=== PATIENT | male | born 1955 | race African-American/Black ===

== ENCOUNTER → 2016-09-09 | Outpatient (CLI) | payer BC ==
[~2016-09-09] MED LIST: AMLODIPINE BESY10 MG PO; ASPIRIN EC81 M1 PO; ATENOLOL PO; ATORVASTATIN CA20 MG PO; BAYER ASPIRIN325 M1 PO; FISH OIL 1,0001 EAC4 PO; HYDRALAZINE HC100 MG PO; HYDROCHLOROTHIA25 MG PO; HYDROCODON-ACE1 EAC5 PO; K-DUR20 ME1 PO; MULTI VITAMIN1 EACH PO; VITAMIN B PO; VITAMIN D PO; ZESTRIL40 MG PO
--- NOTE | ~2016-09-09 | CO ---
Unit #: [id number] #: [id number] Patient: REGGIE HICKEY [id number] [address] [place], [place] [address] [id number] O MR#: [id number] NAME: REGGIE HICKEY ROOM: Age: 61 Sex: M Admission Date: 09/09/2016 : 1955 Attending Physician: Dorian Hensley M.D. Primary Care Physician: No Primary Care Physician CONSULTATION REPORT REASON FOR CONSULTATION Preoperative medical evaluation prior to right total knee arthroplasty scheduled by Dr. Hensley for 09/21/2016. HISTORY OF PRESENT ILLNESS The patient is a 61-year-old -Swazi male who presents for pre-procedural screening for reasons indicated above. He reports pain in the right knee at the time of this interview. He denies chest, arm, neck, jaw, back pain or pressure. Denies lightheadedness, dizziness, presyncope, syncope, palpitations. He denies dyspnea on exertion, PND, orthopnea. He has a history of sleep apnea but is unable to tolerate the CPAP mask. He denies history of myocardial infarction, congestive heart failure, CVA, TIA, diabetes mellitus or renal disease. He states he was seen by a dentist within the past three months. He has been evaluated by Dr. Hensley and scheduled for the above referenced procedure. PAST MEDICAL HISTORY 1. Osteoarthritis. 2. Hypertension. 3. Hyperlipidemia. 4. History of rheumatic fever with history of cardiac workup at some point with Dr. Matthias Turner, Dr. Muhammad and also questionable workup at the [facility]. The patient is unclear regarding time frames for this workup. 5. Obesity, BMI 34. 6. Obstructive sleep apnea, inability to tolerate CPAP mask. 7. Nonsmoker. 8. Health maintenance dental exam approximately three months ago. PAST SURGICAL HISTORY 1. Hernia. 2. Left shoulder surgery. 3. Left foot fracture repair. Patient denies a personal or family history of complications to anesthesia. ALLERGIES No known medication allergies. No latex allergy. CURRENT MEDICATIONS 1. K-Dur 20 mEq p.o. daily. 2. Hydralazine ACL 100 mg p.o. daily. 3. Hydrochlorothiazide 25 mg p.o. daily. Unit #: [id number] #: [id number] Patient: REGGIE HICKEY 4. Tenormin 100 mg p.o. daily. 5. Zestril 40 mg p.o. daily. 6. Atorvastatin calcium 20 mg p.o. daily. 7. Amlodipine besylate 10 mg p.o. daily. 8. Aspirin EC 81 mg p.o. daily. 9. Multivitamin, one tab p.o. daily. 10. Fish oil 1000 mg capsule p.o. daily. 11. Vitamin D, unknown dose p.o. daily. 12. Vitamin B, unknown dose p.o. daily. SOCIAL HISTORY Denies tobacco use and illicit drug use. Occasionally consumes beer. FAMILY HISTORY Per review of Dr. Hensley's office note and confirmation with the patient - stroke, hypertension and diabetes. Denies family history of myocardial infarction or congestive heart failure. REVIEW OF SYSTEMS A ten point review of systems is conducted and negative except as indicated under history of present illness above. PHYSICAL EXAMINATION GENERAL: 61-year-old -Swazi male awake, alert, in no acute distress. Flat affect. Somewhat irritable, ready to go home. VITAL SIGNS: Temperature 97.6, heart rate 61, respiratory rate 16, blood pressure 122/69. Oxygen saturation 97% on room air. HEENT: Atraumatic, normocephalic. Sclerae anicteric, without discharge from eyes, ears or nares. LYMPHS: No preauricular, postauricular, tonsillar, submental, anterior, posterior, cervical, supra or infraclavicular adenopathy. ENDOCRINE: No thyromegaly, thyroid nodules or tenderness. RESPIRATORY: Clear to auscultation in all conklin bilaterally without wheezes, rhonchi or rales. CARDIOVASCULAR: S1, S2. Regular rate and rhythm without murmur or rub. No carotid bruits. GI: Bowel sounds positive x4. Soft, nontender, nondistended. EXTREMITIES: No edema, cyanosis or clubbing. MUSCULOSKELETAL: Strength 5/5 in all extremities bilaterally with flexion/extension. NEURO: Alert and oriented x3. Speech clear. Cranial nerves II-XII grossly intact. DIAGNOSTIC STUDIES LABORATORY: WBC 4.4, hemoglobin 14.7, hematocrit 45.3, platelet count 145,000. Sodium 136, potassium 4.0, chloride 106, CO2 24, glucose 107, BUN 22, creatinine 1.4, calcium 9.1, AST 31, ALT 35, alkaline phos. 78, bili total 0.3, total protein 6.6, albumin 3.9. PT 10.7, INR 1.0. Urinalysis negative with neither microscopic nor culture indicated. Blood type 0 positive. Antibody screen pending at this time. MRSA nasal swab report pending at this time. DIAGNOSTIC STUDIES Unit #: [id number] #: [id number] Patient: REGGIE HICKEY IMAGIN-view chest x-ray report pending at this time. CARDIOVASCULAR: 12-lead EKG - sinus rhythm with premature supraventricular complexes, otherwise normal ECG. Tracing reviewed. Confirmed report pending at this time. IMPRESSION The patient is a 61-year-old -Swazi male who presents to pre-procedural screening for: 1. Preoperative medical evaluation prior to right total knee arthroplasty: The patient's Hagan Revised Cardiac Risk Index is equal to 0.4%. However, I have requested preoperative cardiac clearance given the patient's history of rheumatic fever as well as multiple risk factors for atherosclerotic cardiovascular disease. This has been discussed in detail with the patient. He is agreeable with the plan. The patient's EKG will be faxed to the [facility] today. The patient tells me he has an appointment with his primary care physician there tomorrow. I have given him a note stating that he needs to obtain preoperative cardiac clearance prior to his elective right total knee arthroplasty on 09/21/16. The patient verbalized understanding of this plan. 2. Osteoarthritis. 3. Hypertension: Blood pressure is stable at this time. Will plan on continuation of current medications pending recommendations from prior care physician. 4. Hyperlipidemia. 5. History of rheumatic fever. 6. Obesity: Body mass index of 34. 7. Obstructive sleep apnea: Unable to tolerate CPAP mask. Will place patient on RENETTA protocol postoperatively. 8. Nonsmoker. 9. Health maintenance dental exam three months ago: The patient's dentist is to provide a letter of preop dental clearance for Dr. Hensley. Thank you for allowing us to participate in the care of this patient. Will gladly follow for postop medical management pending preoperative cardiac clearance in order of Dr. Hensley. Dictated by... Silverio WaltersR.N. for Pauly Omer/jose TD: 09/10/2016 09:26 JOB #: [id number] Unit #: [id number] #: [id number] Patient: REGGIE HICKEY CONSULTATION REPORT Page 1 of 1 X Ileana White APRN X CONSULTATION REPORT
--- NOTE | ~2016-09-09 | EKG ---
PATIENT: REGGIE HICKEY UNIT #: [id number] Ventricular Rate: 62 BPM Atrial Rate: 62 BPM P-R Interval: 150 ms QRS Duration: 104 ms Q-T Interval: 416 ms QTC Calculation(Bezet): 422 ms P Jackson: 33 degrees Calculated R Jackson: 14 degrees Calculated T Jackson: 22 degrees Diagnosis Line: Sinus rhythm with Premature supraventricular Diagnosis Line: complexes Diagnosis Line: Otherwise normal ECG Diagnosis Line: No previous ECGs available Diagnosis Line: Confirmed by LOLA DARDEN MD ([id number]) on 09/10/2016 Diagnosis Line: 7:55:08 PM INTERPRETING MD: KATALINA BLACKBURN
--- NOTE | ~2016-09-09 | CR63 ---
[facility] A Service of [facility] & [facility] RADIOLOGY TEXT RESULTS PATIENT: REGGIE HICKEY LOCATION: [facility] : 51 UNIT #: [id number] AGE: [address]: Dorian Hensley MD SEX: M ORDER DR: [id number] [facility] [address] [place], [place] [address] [id number] O MR#: [id number] Acc #: [id number] NAME: REGGIE HICKEY : 1955 SEX: M STUDY DATE/TIME: 09/09/2016 11:31 UNIT: [facility] ROOM: STUDY DESCRIPTION: CR Chest 2 View Attending Physician: Dorian Hensley M.D. Referring Physician: Dorian Hensley M.D. Ordering Physician: Dorian Hensley M.D. Primary Care Physician: No Primary Care Physician MEDICAL IMAGING REPORT This report is preliminary unless electronic signature is present EXAM 2 views of the chest. COMPARISON None INDICATION 61-year-old male. Preop respiratory exam prior to right total knee arthroplasty. FINDINGS Cardiomediastinal silhouette is within normal limits for low lung volumes. There is no evidence of a pneumothorax, pleural effusion, or acute airspace disease. IMPRESSION Normal exam. Dictated by... Rashel Ryan M.D. THIS IS AN ELECTRONICALLY VERIFIED REPORT Rashel Ryan M.D. at 09/14/2016 4:18 PM DANNI/eliana TD: 09/09/2016 17:01 JOB #: [id number] MEDICAL IMAGING REPORT Page 1 of 1 COPY
[2016-09-09 10:54] LABS: HEMATOCRIT 45.3 % (38.0-50.0); HEMOGLOBIN 14.7 gm/dL (13.0-16.0); MEAN CELL VOLUME 87.2 FL (83-96); MEAN CORPUSCULAR HEMOGLOBIN 28.2 PG (28-34); MEAN CORPUSCULAR HGB CONC 32.4 g/dL (30-36); RED BLOOD COUNT 5.19 X10e (3.90-5.60); RED CELL DISTRIBUTION WIDTH 15.1 % (11.0-15.5); WHITE BLOOD COUNT 4.4 X10e3 (4.0-10.5)
[2016-09-09 10:57] LABS: URINE APPEARANCE CLEAR; URINE BILIRUBIN NEG (NEG); URINE BLOOD NEG (NEG); URINE COLOR YELLOW; URINE GLUCOSE NEG (NEG); URINE KETONE NEG (NEG); URINE LEUKOCYTE ESTERASE NEG (NEG); URINE NITRATE NEG (NEG); URINE PROTEIN NEG (NEG); URINE SPECIFIC GRAVITY 1.021 (1.003-1.035); URINE UROBILINOGEN 0.2 MG/DL (NEG)
[2016-09-09 11:00] LABS: CULTURE INDICATED? NO
[2016-09-09 11:02] LABS: PROTHROMBIN TIME (PATIENT) 10.7 SECONDS (9.6-11.5)
[2016-09-09 11:46] LABS: ALBUMIN SERUM 3.9 g/dL (3.5-5.0); BILIRUBIN,TOTAL 0.3 mg/dL (0.2-2.0); BUN/CREATININE RATIO 15.71; CALCIUM SERUM 9.1 mg/dL (8.4-10.2); CREATININE SERUM 1.4 mg/dL (0.6-1.4); GLOM FILT RATE Estimated 61.6 mL/min (>60); PROTEIN TOTAL SERUM 6.6 g/dL (6.0-8.3)
== END | disposition home or self-care (01) ==
LOC: CAMB 10:11
PROVIDERS: Orthopaedic Surgery
DX: Z01.818 Encounter for other preprocedural examination (principal); M17.11 Unilateral primary osteoarthritis, right knee; I10 Essential (primary) hypertension; E78.5 Hyperlipidemia, unspecified; E66.9 Obesity, unspecified; Z68.34 Body mass index [BMI] 34.0-34.9, adult; Z87.898 Personal history of other specified conditions; Z98.890 Other specified postprocedural states
CPT/HCPCS: 36415; 71020; 80053; 81003; 85027; 85610; 86850; 86900; 86901; 87070; 93005

== ENCOUNTER 2016-09-21 07:12 | Inpatient (IN) | payer BC ==
--- NOTE | ~2016-09-21 | OR ---
Unit #: [id number] #: [id number] Patient: REGGIE HICKEY [id number] [place], [place] [address] [id number] I MR#: [id number] NAME: REGGIE HICKEY ROOM: [facility] Date of Procedure: 09/21/2016 Admission Date: 09/21/2016 Surgeon: Dorian Hensley M.D. : 1955 Attending Physician: Dorian Hensley M.D. OPERATIVE REPORT PREOPERATIVE DIAGNOSIS Primary localized osteoarthritis of the right knee. POSTOPERATIVE DIAGNOSIS Primary localized osteoarthritis of the right knee. PROCEDURE PERFORMED Right total knee. ASSISTANTS Naz Ball and Jaydon Deleon. ANESTHESIA Adductor canal block plus general. ESTIMATED BLOOD LOSS 100 mL. INDICATIONS FOR PROCEDURE This is a 61-year-old with severe pain in his right knee. He has had pain for months. It has gotten progressively worse. X-rays show he has [id number] with subchondral sclerosis and periarticular osteophytes. He has tried injections and anti-inflammatories with no relief of the discomfort. DESCRIPTION OF PROCEDURE The patient was brought to the holding room, given 3 g of Ancef. This will be continued postop, but discontinued within 23 hours the start time of surgery. He was then given an adductor canal block, brought back to the operating room, given a general anesthetic. Tourniquet was placed around the right thigh. The right leg was prepped and draped in a sterile fashion. Tourniquet was inflated to 300. A straight anterior skin incision was made. The subcutaneous dissected away and a medial arthrotomy was performed. Patella was slid to the side. Osteophytes were removed from the femur. The intramedullary guide was used and a 6-degree valgus cut was made on the distal femur. The femur was sized using the ATTUNE sizing guide and it was found to be a size 7. The anterior-posterior cutting block was applied. Rotation checked in the knee. Anterior and posterior cuts were made along with the chamfer cuts. We then made a cut for the trochlear groove. Proximal tibial cut was made using an external 0 degree block and it was found to be a size 7 as well. Any remaining meniscal fragments were debrided and any posterior condylar Unit #: [id number] #: [id number] Patient: REGGIE HICKEY osteophytes were removed. We then injected the posterior capsule and the periosteum with ropivacaine. Trial femur was applied and the drill holes were made for lugs on the femoral component. Trial tibia was applied with first a 5 and then a 6 mm insert. The 6 came to full extension, had good stability in extension and flexion. The patella was grasped with 2 towel clips, measured 26 mm thick, cut smooth at 15 and a 41 patella was the appropriate size. The 3 drill holes were made. Trial patella applied and it tracked properly. We then removed all the trials, used the drill and punch for the tibial tray. The posterior condylar osteophytes were removed. The posterior capsule and the periosteum were injected with a ropivacaine mixture. We then irrigated the knee and dried while the cement was mixed. Then, all 3 components were cemented simultaneously. Once again, it was a size 7 femur, size 7 tibia, and a 41 patella from the Bizzby Knee system. After the cement was hardened, it was judged that the 6 mm insert was the appropriate thickness, so this was opened and applied to the tray. The tourniquet was released. Hemostasis was obtained. The rest of the ropivacaine mixture was injected. The knee was washed with Betadine and bacitracin and then closed using 0 Ethibond in the arthrotomy, 0 and 2-0 Vicryl in the subcutaneous, and ingrid in the skin. podiatry assistant, Naz Ball was present throughout the entire case. Dictated by... Pauly Yates/bushra TD: 09/21/2016 22:52 JOB #: [id number] OPERATIVE REPORT Page 1 of 1 X Dorian Hensley MD PROCEDURE OPERATIVE NOTE
--- NOTE | ~2016-09-21 | DS ---
Unit #: [id number] #: [id number] Patient: REGGIE BERTRAND [id number] [address] [address] [id number] I MR#: [id number] NAME: REGGIE BERTRAND ROOM: 451 Age: 61 Sex: M Admission Date: 09/21/2016 : 1955 Discharge Date: Attending Physician: Dorian Hensley M.D. DISCHARGE SUMMARY DATE OF ANTICIPATED DISCHARGE September 22, 2016 ADMITTING DIAGNOSIS Right knee osteoarthritis. DISCHARGE DIAGNOSIS Right knee osteoarthritis. HOSPITAL COURSE On September 21, 2016, Mr. Bertrand underwent a right total knee arthroplasty. He tolerated the procedure well. He was transported to the fourth floor. He underwent physical therapy, medical management, and anticoagulation therapy. He is doing well and is ready to be discharged. CONDITION ON DISCHARGE Stable. DISPOSITION Discharge home with [facility] to follow. DISCHARGE MEDICATIONS His routine home medications, in addition to [place] 10/325 and aspirin 325 mg p.o. b.i.d. FOLLOWUP AND INSTRUCTIONS 1. Mr. Bertrand is going to be discharged home. 2. No labs are to be drawn at this time. 3. Skin ingrid are to be discontinued two weeks postop. Please apply Steri-Strips a fourth of an inch apart. 4. White FATEMEH hose are to be worn during the day and can be removed in the evening. 5. Patient can shower in one week and can drive after seen by Dr. Hensley at his six-week postop appointment. 6. Physical therapy is to be done for active range of motion, strengthening, and progressive ambulation. 7. Patient is going to be on a walker for four weeks and a cane for an additional two weeks. 8. Followup appointment with Dr. Hensley is in six weeks. Please call our office for that appointment date and time. 1. Dictated by... Dipesh ColeAShyamC. for Dorian Hensley M.D. Unit #: [id number] #: [id number] Patient: REGGIE BERTRAND GENARO/aston TD: 09/22/2016 20:40 JOB #: [id number] DISCHARGE SUMMARY Page 1 of 1 X Naz Ball DISCHARGE SUMMARY
[~2016-09-21 07:12] MED LIST changes: -BAYER ASPIRIN325 M1 PO; -HYDROCODON-ACE1 EAC5 PO
[2016-09-21 07:56] LABS: PROTHROMBIN TIME (PATIENT) 10.2 SECONDS (9.6-11.5)
[2016-09-22 02:41] LABS: HEMATOCRIT 39.7 % (38.0-50.0); HEMOGLOBIN 12.9 gm/dL (13.0-16.0)
[2016-09-22 03:07] LABS: BUN/CREATININE RATIO 17.33; CALCIUM SERUM 8.5 mg/dL (8.4-10.2); CREATININE SERUM 1.5 mg/dL (0.6-1.4); GLOM FILT RATE Estimated 56.6 mL/min (>60); MAGNESIUM 1.9 mg/dL (1.6-3.0)
[2016-09-22] MEDS ORDERED: BAYER ASPIRIN325 M1 PO (10:54)
[2016-09-22] MEDS ORDERED: HYDROCODON-ACE1 EAC5 PO (10:54)
[2016-09-23 03:22] LABS: HEMATOCRIT 38.1 % (38.0-50.0); HEMOGLOBIN 12.3 gm/dL (13.0-16.0)
== END 2016-09-23 16:02 | disposition home or self-care (01) | DRG 470 ==
LOC: CSUR 07:12 → CPACUOF 09:00 → C4B 12:49
PROVIDERS: Nurse Practitioner; Orthopaedic Surgery
PROC: 0SRC0J9 Replacement of Right Knee Joint with Synthetic Substitute, Cemented, Open Approach (ICD-10-PCS; principal; 2016-09-21 09:00)
DX: M17.11 Unilateral primary osteoarthritis, right knee (principal); D62 Acute posthemorrhagic anemia; I10 Essential (primary) hypertension; E78.5 Hyperlipidemia, unspecified; E66.9 Obesity, unspecified; Z68.34 Body mass index [BMI] 34.0-34.9, adult; G47.33 Obstructive sleep apnea (adult) (pediatric)
CPT/HCPCS: 80048; 83735; 85014; 85018; 85610; 94760; 97110; 97116; 97161; 97165; 97530; 97535; C1776; J0131; J0171; J0690; J0735; J1100; J1885; J2250; J2405; J2795; J3010